=== PATIENT | male | born 1995 | race African-American/Black ===

== ENCOUNTER 2020-07-04 12:09 | Emergency (ER) | payer SELFPAY ==
[2020-07-04] MEDS ORDERED: Boostrix 0.5 ML (Tdap) VIAL ONE ×2 (13:09→13:10)
== END 2020-07-04 13:43 | disposition home or self-care (01) ==
LOC: ERS 12:09
DX: S50.811A Abrasion of right forearm, initial encounter (principal); F17.210 Nicotine dependence, cigarettes, uncomplicated; W01.198A Fall on same level from slipping, tripping and stumbling with subsequent striking against other object, initial encounter
CPT/HCPCS: 90471; 90715